=== PATIENT | female | born 1965 | race Caucasian/White ===

== ENCOUNTER → 2019-07-07 10:18 | Outpatient (CLI) | payer OTHER, SELFPAY ==
--- NOTE | 2019-07-07 10:21 | DI.RAD.S_ITS ---
PROCEDURE: XR CERVICAL SPINE 2V OR 3V INDICATIONS: pain and decreased range of motion in neck TECHNIQUE: 4 view(s) of the cervical spine were acquired. COMPARISON: None. FINDINGS: Bones: Straightening of the normal lordotic curvature. No fracture. Multilevel degenerative endplate sclerosis and spurring. Diffuse facet arthropathy. Moderate narrowing of C5-C6 C6-C7 disc spaces. Soft tissues: No prevertebral soft tissue swelling. IMPRESSION: Multilevel cervical spondylosis most pronounced C5-C6 and C6-C7. Diffuse facet arthropathy. Straightening of the normal lordotic curvature. Dictated by: Chuy Marquis M.D. on 07/07/2019 at 11:14 Approved by: Chuy Marquis M.D. on 07/07/2019 at 11:16
== END ==
PROVIDERS: PCP Nurse Practitioner; Visit Provider Nurse Practitioner
DX: M54.2 Cervicalgia (principal); R29.898 Other symptoms and signs involving the musculoskeletal system; M47.812 Spondylosis without myelopathy or radiculopathy, cervical region
CPT/HCPCS: 72040

== ENCOUNTER → 2019-07-07 10:29 | Outpatient (CLI) | payer OTHER, SELFPAY | PROVIDERS: PCP Nurse Practitioner; Visit Provider Nurse Practitioner | DX: M54.2 Cervicalgia (principal); M47.812 Spondylosis without myelopathy or radiculopathy, cervical region; R29.898 Other symptoms and signs involving the musculoskeletal system | CPT/HCPCS: 72040 ==

== ENCOUNTER → 2019-08-31 10:18 | Outpatient (CLI) | payer OTHER, SELFPAY ==
[2019-08-31 11:02] LABS: Hematocrit 37.9 % (36-46); Hemoglobin 12.4 g/dL (12.0-16.0); Mean Corpuscular HGB Conc 32.7 % (30-36); Mean Corpuscular Hemoglobin 26.4 PG (26-34); Mean Corpuscular Volume 80.6 fL (80-100); Platelet Count 323 X10^3/uL (150-400); Red Cell Distribution Width 22.8 % (11.6-14.8); White Blood Cell Count 8.3 X10^3/uL (4.5-11.0)
[2019-08-31 11:13] LABS: Alanine Aminotransferase 35 IU/L (<35); Albumin 4.3 g/dL (3.5-5.0); Alkaline Phosphatase 92 U/L (38-126); Aspartate Aminotransferase 36 IU/L (14-36); BUN Creatinine Ratio 17.9 (6-22); Bilirubin Total 0.7 mg/dL (0.2-1.3); Bilirubin Urine UA NEGATIVE (NEGATIVE); Blood Urea Nitrogen 10 mg/dL (7-17); Calcium 9.2 mg/dL (8.4-10.2); Carbon Dioxide 26 mmol/L (22-32); Chloride 104 mmol/L (98-107); Cholesterol 158 mg/dL (140-199); Color Urine UA YELLOW; Estimated Glomerular Filt Rate > 60.0 mL/min (>60); Globulin 4.2 g/dL (1.7-4.1); Glucose 107 mg/dL (70-100); Glucose Urine UA NEGATIVE (Negative); HDL Cholesterol 45 mg/dL (40-60); HEMOLYSIS < 15 (0-50); Ketones Urine UA 1+ (NEGATIVE); LDL Cholesterol Calculated 101 mg/dL (<100); Leukocyte Esterase Urine UA 1+ (NEGATIVE); Nitrite Urine UA NEGATIVE (Negative); Occult Blood Urine UA 1+ (Negative); Protein Urine UA TRACE (Negative); Sodium 139 mmol/L (137-145); Specific Gravity Urine UA 1.015 (1.000-1.035); Total Protein 8.5 g/dL (6.3-8.2); Triglycerides 60 mg/dL (35-150); Urobilinogen Urine UA 0.2 E.U./dL (0.2)
[2019-08-31 11:17] LABS: Appearance Urine UA Slightly Cloudy
[2019-08-31 11:30] LABS: Bacteria Urine Moderate (10-30); Culture Indicated Urine Specimen Cultured; RBC Urine 1-5/HPF (0-5/HPF); Squamous Epithelial Cell Urine 1-5 /HPF (0-5/HPF); WBC Urine >100/HPF (0-5/HPF)
[2019-08-31 12:00] LABS: Thyroid Stimulating Hormone 0.91 uIU/mL (0.47-4.68)
[2019-08-31 12:12] LABS: Free T3, Triiodothyronine Free 2.57 pg/mL (2.77-5.27); Free T4, Direct Thyroxine 1.12 ng/dL (0.78-2.19)
== END ==
PROVIDERS: PCP Nurse Practitioner; Referring Provider Nurse Practitioner; Visit Provider Nurse Practitioner
DX: Z00.00 Encounter for general adult medical examination without abnormal findings (principal); R39.89 Other symptoms and signs involving the genitourinary system; R25.1 Tremor, unspecified; F41.9 Anxiety disorder, unspecified
CPT/HCPCS: 36415; 80053; 80061; 81001; 84439; 84443; 84481; 85027; 87077; 87086; 87186

== ENCOUNTER → 2019-09-15 13:31 | Outpatient (CLI) | payer OTHER, SELFPAY ==
--- NOTE | 2019-09-15 13:35 | DI.MG.S_ITS ---
BILATERAL DIGITAL DIAGNOSTIC MAMMOGRAM 3D/2D WITH AUGMENTATION: 09/15/2019 CLINICAL: Baseline exam. Right breast tenderness and lumps. No prior exams were available for comparison. The tissue of both breasts is heterogeneously dense. This may lower the sensitivity of mammography. Bilateral subpectoral saline implants are present. No significant masses, calcifications, or other findings are seen in either breast. Specifically, no finding to correspond to the patient's pain. The patient was unable to locate any palpable abnormality during today's exam. IMPRESSION: There is no abnormality seen in the right breast to correspond with the pain. There is no mammographic evidence of malignancy. Return to annual mammogram screening schedule is recommended. Findings and recommendations were conveyed to the patient at time of exam. This exam was interpreted at Station ID: [id number]. NOTE: For mammograms, a report in lay terms will be sent to the patient. Approximately 15% of breast malignancies will not be visualized mammographically. In the management of a palpable breast mass, a negative mammogram must not discourage biopsy of a clinically suspicious lesion. Electronically Signed By: Lina gonzalez/:09/15/2019 14:52:25 letter sent: Normal Exam ACR BI-RADS Category 2: Benign Finding(s) 3342F
== END ==
PROVIDERS: PCP Nurse Practitioner; Referring Provider Nurse Practitioner; Visit Provider Nurse Practitioner
DX: N64.4 Mastodynia (principal); N63.10 Unspecified lump in the right breast, unspecified quadrant; Z98.82 Breast implant status
CPT/HCPCS: 77066; G0279

== ENCOUNTER → 2019-09-28 08:57 | Outpatient (CLI) | payer OTHER, SELFPAY ==
--- NOTE | 2019-09-28 | DI.CT.S_ITS ---
PROCEDURE: CT KIDNEY URETER BLADDER (KUB) INDICATIONS: Right lower quadrant pain TECHNIQUE: Noncontrast 5 mm thick sections acquired from the diaphragms to the symphysis. 5 mm thick coronal and sagittal reformats were then performed. For radiation dose reduction, the following was used: automated exposure control, adjustment of mA and/or kV according to patient size. COMPARISON: None. FINDINGS: Image quality: Excellent. Lung bases: Lung bases are clear. Heart size is normal. Urinary system: Both kidneys are normal in size. Nonobstructing left-sided kidney stones are seen, with which measure up to 5 mm. Tiny 1 mm nonobstructing stones are seen on the right. No hydronephrosis or perinephric fat stranding. Both ureters appear non-dilated throughout their expected courses. Bladder wall thickness is normal; no calcified bladder stones. Other solid organs: Liver is normal in size. Gallbladder wall does not appear thickened. Pancreas is normal in contours. Spleen is normal in size. No adrenal nodules. Peritoneum and bowel: In this patient with this given history, scrutiny is given to the right lower quadrant. No focal right lower quadrant inflammatory change can be seen. A normal-appearing appendix is seen, as on series 4 images 24 through 27 and on series 2 image 50. Unenhanced bowel loops demonstrate normal wall thickness and caliber. No free fluid or air. Diverticulosis is seen, without findings of active diverticulitis. Nodes and vessels: No retroperitoneal or mesenteric adenopathy by size criteria. Aorta and inferior vena cava are normal in caliber. Abdominal wall: No ventral hernias. Pelvis: No free pelvic fluid. No inguinal hernias or adenopathy. The uterus is within normal limits. Physiologic-appearing cysts can be seen involving the adnexal regions. Bones: No suspicious bony lesions. No vertebral body compression fractures. IMPRESSION: No imaging explanation is found for this patient's presenting history of right lower quadrant pain. A normal appendix is identified, without focal right lower quadrant inflammatory change. No adnexal masses are detected. Nonobstructing bilateral renal stones are seen. No hydronephrosis or signs of obstructive uropathy Incidental note is made of: Diverticulosis, without findings of active diverticulitis. Dictated by: Gabriel Buchanan M.D. on 09/28/2019 at 8:43 Approved by: Gabriel Buchanan M.D. on 09/28/2019 at 8:47
== END ==
PROVIDERS: PCP Nurse Practitioner; Referring Provider Physician Assistant; Visit Provider Physician Assistant
DX: R10.31 Right lower quadrant pain (principal); N20.0 Calculus of kidney; K57.90 Diverticulosis of intestine, part unspecified, without perforation or abscess without bleeding
CPT/HCPCS: 74176

== ENCOUNTER → 2019-09-29 14:04 | Outpatient (CLI) | payer OTHER, SELFPAY ==
[2019-09-29 14:15] LABS: RBC Urine None Seen (0-5/HPF)
[2019-09-29 15:24] LABS: Appearance Urine UA SL CLOUDY; Bilirubin Urine UA NEGATIVE (NEGATIVE); Color Urine UA YELLOW; Glucose Urine UA NEGATIVE (Negative); Ketones Urine UA NEGATIVE (NEGATIVE); Leukocyte Esterase Urine UA 1+ (NEGATIVE); Nitrite Urine UA NEGATIVE (Negative); Occult Blood Urine UA TRACE-LYSED (Negative); Protein Urine UA NEGATIVE (Negative); Urobilinogen Urine UA 0.2 E.U./dL (0.2)
[2019-09-29 15:47] LABS: Amorphous Sediment Urine 1+; Bacteria Urine Few (2-10); Squamous Epithelial Cell Urine 1-5 /HPF (0-5/HPF); WBC Urine 1-5/HPF (0-5/HPF)
[2019-09-29 15:48] LABS: Culture Indicated Urine Specimen Cultured
== END ==
PROVIDERS: PCP Nurse Practitioner; Referring Provider Physician Assistant; Visit Provider Physician Assistant
DX: R10.31 Right lower quadrant pain (principal)
CPT/HCPCS: 81001; 87077; 87086; 87186

== ENCOUNTER → 2019-11-17 09:29 | Outpatient (CLI) | payer OTHER, SELFPAY ==
[2019-11-17 10:10] LABS: Bacteria Urine None Seen; RBC Urine None Seen (0-5/HPF); WBC Urine None Seen (0-5/HPF)
[2019-11-17 12:19] LABS: Appearance Urine UA CLEAR; Bilirubin Urine UA NEGATIVE (NEGATIVE); Color Urine UA YELLOW; Glucose Urine UA NEGATIVE (Negative); Ketones Urine UA NEGATIVE (NEGATIVE); Leukocyte Esterase Urine UA NEGATIVE (NEGATIVE); Nitrite Urine UA NEGATIVE (Negative); Occult Blood Urine UA TRACE-INTACT (Negative); Protein Urine UA NEGATIVE (Negative); Specific Gravity Urine UA 1.015 (1.000-1.035); Urobilinogen Urine UA 0.2 E.U./dL (0.2)
[2019-11-17 12:29] LABS: Urine Comments Microscopic Normal
== END ==
PROVIDERS: PCP Nurse Practitioner; Referring Provider Physician Assistant; Visit Provider Physician Assistant
DX: N30.00 Acute cystitis without hematuria (principal)
CPT/HCPCS: 81001; 87086